=== PATIENT | female | born 1990 | race Caucasian/White ===

== ENCOUNTER 2020-05-02 06:07 | Inpatient (IN) ==
[2020-05-02] MEDS ORDERED: Naloxone 0.4 MG/ML INJ IVP PRN ×2 (06:20→12:01)
[2020-05-02] MEDS ORDERED: Famotidine 20 MG/2 ML VIAL IVP PRN (06:20)
[2020-05-02] MEDS ORDERED: Azithromycin 500 MG in 0.9 % Sodium Chloride 250 ML IVPB ONE (06:20)
[2020-05-02] MEDS ORDERED: Metoclopramide 10 MG/2 ML VIAL IVP PRN ×2 (06:20→12:01)
[2020-05-02] MEDS ORDERED: Ringers Solution, Lactated 1,000 ML IVC ONE (06:21)
[2020-05-02] MEDS ORDERED: *HR* Promethazine 25 MG/ML VIAL IVP PRN (06:23)
[2020-05-02] MEDS ORDERED: *HR* HYDROmorphone PF 0.5 MG/0.5 ML SYRINGE IVP PRN (06:23)
[2020-05-02] MEDS ORDERED: Ringers Solution, Lactated 1,000 ML IVC SCH (06:30)
[2020-05-02 06:54] LABS: Basophils % 0.2 %; Eosinophils # 0.1 K/mcL (0.0-0.6); Eosinophils % 0.7 %; Hematocrit 33.5 % (35.3-44.9); Hemoglobin 10.9 g/dL (11.5-15.4); Lymphocytes # 1.7 K/mcL (0.6-4.6); Lymphocytes % 14.3 %; Mean Corpuscular HGB Conc 32.5 g/dL (31.6-35.5); Mean Corpuscular Hemoglobin 29.7 pg (28.0-33.3); Mean Corpuscular Volume 91.3 fL (83.0-100.0); Mean Platelet Volume 9.3 fL (9.4-12.4); Monocytes % 8.4 %; Neutrophils # 9.1 K/mcL (1.6-8.9); Platelet Count 226 K/mcL (140-400); Red Blood Count 3.67 M/mcL (3.82-4.97); Red Cell Distribution Width 13.2 % (11.5-14.5); Segmented Neutrophils % 75.4 %; White Blood Count 12.1 K/mcL (4.3-11.1)
[2020-05-02] MEDS ORDERED: *HR* Oxytocin 10 UNIT/ML VIAL IM ONE (07:12)
[2020-05-02] MEDS ORDERED: Acetaminophen IV 1,000 MG/100 ML BAG ONE (07:12)
[2020-05-02] MEDS ORDERED: Ondansetron 4 MG/2 ML VIAL ONE (07:12)
[2020-05-02] MEDS ORDERED: *HR* FentaNYL (PF) 100 MCG/2 ML VIAL ONE (07:12)
[2020-05-02] MEDS ORDERED: *HR* Morphine Sulfate/PF 10 MG/10 ML AMPUL ONE (07:12)
[2020-05-02] MEDS ORDERED: EPHEDrine 50 MG/ML VIAL ONE (07:12)
[2020-05-02] MEDS ORDERED: ceFAZolin 2,000 MG in 0.9 % Sodium Chloride 100 ML IVPB ONE ×2 (07:24→07:35)
[2020-05-02] MEDS ORDERED: Ringers Solution, Lactated 1,000 ML ONE (08:08)
[2020-05-02 09:36] LABS: Amphetamine Screen,Urine Negative ng/mL (Cutoff=1000); Barbiturate Screen,Urine Negative ng/mL (Cutoff=200); Benzodiazepines Screen,Urine Negative ng/mL (Cutoff=200); Cannabinoid Screen,Urine Positive ng/mL (Cutoff = 50); Cocaine Screen,Urine Negative ng/mL (Cutoff= 300); Opiate Screen,Urine Negative ng/mL (Cutoff=300); Phencyclidine Screen,Urine Negative ng/mL (Cutoff=25)
[2020-05-02] MEDS ORDERED: Oxytocin 20 units/ LR 1000 mL 20 UNIT/1,000 ML BAG IVC ONE (11:10)
[2020-05-02] MEDS ORDERED: Ondansetron 4 MG/2 ML VIAL IVP PRN (12:01)
[2020-05-02] MEDS ORDERED: Oxytocin 20 units/ LR 1000 mL 20 UNIT/1,000 ML BAG IVC SCH (12:01)
[2020-05-02] MEDS ORDERED: Simethicone 80 MG TAB.CHEW PO PRN (12:01)
[2020-05-02] MEDS ORDERED: Sennosides 8.6 MG TABLET PO PRN (12:01)
[2020-05-02] MEDS ORDERED: Acetaminophen 325 MG TABLET PO PRN (12:01)
[2020-05-02] MEDS: Ketorolac 30 MG/ML VIAL IVP SCH ×2 (16:45→18:13)
[2020-05-03] MEDS: Ketorolac 30 MG/ML VIAL IVP SCH ×3 (00:16→14:06)
[2020-05-03 04:52] LABS: Basophils % 0.2 %; Eosinophils # 0.1 K/mcL (0.0-0.6); Eosinophils % 0.9 %; Hematocrit 26.3 % (35.3-44.9); Immature Granulocytes % 0.6 % (0-4); Lymphocytes # 1.3 K/mcL (0.6-4.6); Lymphocytes % 13.4 %; Mean Corpuscular HGB Conc 33.5 g/dL (31.6-35.5); Mean Corpuscular Hemoglobin 30.7 pg (28.0-33.3); Mean Corpuscular Volume 91.6 fL (83.0-100.0); Mean Platelet Volume 9.5 fL (9.4-12.4); Monocytes # 0.8 K/mcL (0.0-1.3); Monocytes % 8.6 %; Neutrophils # 7.3 K/mcL (1.6-8.9); Platelet Count 172 K/mcL (140-400); Red Blood Count 2.87 M/mcL (3.82-4.97); Red Cell Distribution Width 13.2 % (11.5-14.5); Segmented Neutrophils % 76.3 %; White Blood Count 9.6 K/mcL (4.3-11.1)
[2020-05-03 04:58] LABS: Hemoglobin 8.8 g/dL (11.5-15.4)
[2020-05-03] MEDS: Prenatal Vit/FA 1 EACH TABLET PO SCH (07:47)
[2020-05-03] MEDS: *HR* OxyCODONE Immed Rel 5 MG TABLET PO PRN (21:09)
[2020-05-03] MEDS: Ibuprofen 600 MG TABLET PO PRN (21:21)
[2020-05-04] MEDS: Ibuprofen 600 MG TABLET PO PRN ×2 (02:59→09:28)
[2020-05-04] MEDS: *HR* OxyCODONE Immed Rel 5 MG TABLET PO PRN ×2 (03:00→09:28)
[2020-05-04 08:16] VITALS: BP 112/76
[2020-05-04] MEDS: Prenatal Vit/FA 1 EACH TABLET PO SCH (08:16)
[2020-05-04] MEDS ORDERED: Ibuprofen 600 MG TABLET PO PRN (12:00)
== END 2020-05-04 10:55 | disposition home or self-care (01) | DRG 539 ==
LOC: 1NENULAB 06:07 → EDSTATUS 07:45 → 1NENUOBS 11:31
PROVIDERS: ADMIT Obstetrics & Gynecology; ATTEND Obstetrics & Gynecology